=== PATIENT | male | born 1975 | race Caucasian/White ===

== ENCOUNTER 2016-08-16 11:28 | Emergency (ER) | payer MEDICARE, OTHER | END 2016-08-16 12:54 | disposition home or self-care (01) | LOC: ED 11:28 | DX: S69.92XA Unspecified injury of left wrist, hand and finger(s), initial encounter (principal); W23.0XXA Caught, crushed, jammed, or pinched between moving objects, initial encounter; Z53.21 Procedure and treatment not carried out due to patient leaving prior to being seen by health care provider ==